=== PATIENT | female | born 1960 | race Caucasian/White ===

== ENCOUNTER 2024-01-28 08:51 | Outpatient (AMB) | payer OTHER, SELFPAY ==
--- NOTE | 2024-01-28 08:55 | MHC.OFFVIS ---
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 Intake Note: New patient dx tachycardia not having issues Electric Engine Mechanic Required: No Fuel Distribution System Operator: Fuel Distribution System Operator Present Accompanied by: Spouse Allergies hayfever Allergy (Uncoded 01/28/24 09:05) Redness of Skin Medication List - Last Reconciled 01/28/24 by Ludwin Mendoza MD amlodipine 2.5 mg PO DAILY atorvastatin 40 mg PO DAILY celecoxib 200 mg PO DAILY PRN dulaglutide (Trulicity) mg subcut empagliflozin (Jardiance) 10 mg PO DAILY losartan-hydrochlorothiazide 100-12.5 mg 1 tab PO DAILY metformin ER 1,000 mg PO BID metoprolol tartrate 12.5 mg PO BID HPI Comments Details: I was consulted to see Ana in cardiology consultation today for noted sinus tachycardia on her EKG. She has a pleasant 63-year-old woman with prior history of hypertension, diabetes, hyperlipidemia on therapy. Her last LDL is 108 mg/dL. In August on a routine annual physical she had EKG which showed sinus tachycardia with poor R-wave progression most likely due to lead placement. This led to further workup with a Holter monitor which showed average heart of 82 beats per minute without any significant arrhythmias with a peak heart rate up to 135 beats per minute. This raised some concern although patient says when she was wearing a Holter monitor she was very active and moving around. She had no other symptoms. Subsequently had an echocardiogram which showed hyperdynamic LVEF of 70-80% with no LVH and no cardiac valvular abnormality and normal right-sided chamber and function as well as no pulmonary hypertension. May she had an Achilles tendon injury and subsequently had pain and was laid up for couple months and was not able to be more active and in August when she saw your office she was in some pain. She had no associated shortness of breath with sinus tachycardia. However she says with exertion she does get short of breath but she attributes this to her weight. She has never had prior vascular events. She denies any lightheadedness, syncope. Denies any heart failure symptoms. [facility] Medical History (Updated 01/28/24 @ 09:37 by Ludwin Mendoza MD) NICOLE (obstructive sleep apnea) Obesity Hyperlipidemia Diabetes HTN (hypertension) Surgical History History of History of appendectomy Family History Father Colon cancer Afib Mother Lung cancer Social History Patient Tobacco Use Status: Former Tobacco user Review of Systems Const Denies chills, Denies daytime sleepiness, Denies fatigue, Denies fever(s), Denies frequent falls, Denies poor appetite, Denies snoring, Denies stops breathing during sleep, Denies weakness, Denies weight gain and Denies weight loss Eyes Denies loss of vision ENT Denies dizziness and Denies hearing loss Card Denies chest pain, Denies claudication, Denies leg edema, Denies lightheadedness, Denies palpitations, Denies dyspnea, Denies dyspnea on exertion and Denies orthopnea Resp Denies cough, Denies excessive phlegm production, Denies dyspnea, Denies dyspnea on exertion, Denies snoring and Denies wheezing GI Denies abdominal pain, Denies hematochezia, Denies change in bowel habits, Denies nausea and Denies vomiting Denies urinary frequency and Denies dysuria Musc Denies arthralgias, Denies muscle weakness, Denies numbness and Denies other (frequent falls) Skin/Breast Denies nail changes and Denies rash Neuro Denies Abnormal speech present, Denies dizziness, Denies frequent falls, Denies loss of vision, Denies memory loss, Denies numbness and Denies weakness Psych Denies depression and Denies memory loss Endo Denies fatigue and Denies palpitations Terrence/Lymph Reports easy bruising and Reports other (anemia) Aller/Immun Denies wheezing Physical Exam Vital Signs: Last Vital Signs Pulse 69 01/28/24 09:01 BP 124/76 01/28/24 09:01 BMI result Body Mass Index 46.9 Const General: cooperative, comfortable, no acute distress, alert, awake and Physically active Nutritional Appearance: obese Orientation/consciousness: patient oriented x3 Limitations: no limitations HEENT Head: Yes normocephalic and Yes atraumatic Neck Neck: Yes trachea midline, Yes supple and Yes no JVD Resp Effort & Inspection: normal respiratory effort Auscultation: clear to auscultation bilaterally Cardio Jugular venous distension: no JVD Palpation: normal PMI Rate: regular rate Rhythm: regular rhythm Heart sounds: S1 normal heart sound present, S2 normal heart sound present, no click, no gallops, no murmurs and no rubs GI Auscultation: normal bowel sounds Skin General skin exam: no rashes or lesions noted Neuro General: patient oriented x3 and no focal motor deficits Speech: No Abnormal speech present Extrem General: Yes no clubbing, cyanosis or edema Psych Appearance: grossly normal Assessment & Plan Assessment & Plan (1) Sinus tachycardia: Code(s): R00.0 - Tachycardia, unspecified Plan: Incidental sinus tachycardia without any symptoms noted on EKG in your office. Since then he she had a Holter monitor without any therapy and her average heart rate throughout the day was 82 beats per minute which is within normal limits. A peak heart rate was 134 beats per minute which is normal in somebody who is active. She has no significant arrhythmias. She has no other obvious secondary causes although pain could be a possible cause at that time when she was having Achilles tendon issues. There is no clear evidence of pulmonary embolism by her history as well as by subsequent testing with echocardiogram. She has not anemic and/or any signs of dehydration or hyperthyroidism. She has normalized heart rate at this point time I do not see any reason for use of metoprolol therapy in her. I have therefore advised her to taper and discontinue metoprolol therapy. (2) HTN (hypertension): Code(s): I10 - Essential (primary) hypertension Category: Medical Plan: Longstanding hypertension which on today's exam is well optimized on and she is on appropriate medication for the same. She also has multiple other risk factors for coronary disease including diabetes hyperlipidemia. I would suggest her to undergo a coronary calcium screening to further risk stratify. If she is significantly elevated coronary calcium may require further testing with a stress test or angiogram to assess for prognostically significant coronary artery disease. This was discussed with her. Continue aggressive diabetes management goal hemoglobin A1c less than 7%. Goal LDL ideally in patients like her should be less than 70 mg/dL. Will further uptitrate therapy based on the findings of coronary calcium score. Continue CPAP therapy. Continue to participate in aggressive weight loss program. Will follow up in the clinic if need be. Thank you for allowing me to partake in her care Coding Level of Care Code New Pt Level 4 (83968) Diagnoses Sinus tachycardia R00.0 HTN (hypertension) I10
[2024-01-28 09:01] VITALS: BP 124/76; PULSE 69; BMI 46.9
== END 2024-01-28 09:35 | disposition home or self-care (01) ==
PROVIDERS: PCP Nurse Practitioner Gerontology; Visit Provider Internal Medicine Cardiovascular Disease
DX: R00.0 Tachycardia, unspecified (principal); I10 Essential (primary) hypertension
CPT/HCPCS: 93010; 99204

== ENCOUNTER → 2024-01-28 08:51 | Outpatient (BNVA) | payer OTHER, SELFPAY | PROVIDERS: Visit Provider Internal Medicine Cardiovascular Disease | DX: R00.0 Tachycardia, unspecified (principal); I10 Essential (primary) hypertension | CPT/HCPCS: 93005 ==